=== PATIENT | female | born 1990 | race Caucasian/White ===

== ENCOUNTER 2017-01-25 22:09 | Emergency (ER) | payer SELFPAY ==
[~2017-01-25] VITALS: Ht 160 cm; Wt 104.5 kg
[~2017-01-25 22:09] MED LIST: TRAM50TA PO; ZOFR4TAB PO
[2017-01-25 22:10] VITALS: BP 160/87; PULSE 97; RESP 16; TEMP 98.9; O2SAT 100
--- NOTE | 2017-01-25 22:43 | PD ---
HPI Chief Complaint: Respiratory Symptoms Time Seen by Provider: 22:40 Travel History International Travel<30 days: No Contact w/Intl Traveler<30days: No Traveled to known affect area: No History of Present Illness HPI 26-year-old female presents to the emergency department for acute shortness of breath chest heaviness and feeling very anxious with tingling in her hands and feet after taking medication albuterol for an asthma attack. Patient states she has anxiety and is sometimes triggered by use of her inhaler when she has an asthma attack. Patient states this one was more profound and lasted longer and therefore decided to come to the emergency room for evaluation. Patient feels only slightly better at this time. Patient states that she feels very concerned because she tries to breathe she does not feel herself wheezing that she feels pressure in her chest. PFSH Past Medical History Narrative Medical ADHD anxiety asthma migraines cholecystectomy tonsillectomy tympanostomy; no tobacco use nursing notes reviewed ADHD: Yes Asthma: Yes Cancer: No Cardiovascular Problems: No Diabetes: No Diminished Hearing: No Medical other: Yes (Low Vitamin D) Psychiatric: Yes Immunizations Current: Yes Migraines: Yes Seizures: No Thyroid Disease: No Ulcer: No Tetanus Vaccination: > 5 Years Influenza Vaccination: No ?: Not LMP: currently on 01/25/17 : 0 Past Surgical History Appendectomy: No Cholecystectomy: Yes Oral Surgery: Yes (WISDOM TEETH) Tonsillectomy: Yes Tympanostomy Tube: Yes Other Surgery: No Social History Alcohol Use: No Tobacco Use: No Substance Use: No Allergies-Medications (Allergen,Severity, Reaction): Coded Allergies: Smoke (Verified Allergy, Mild, Sneezing, 01/03/16) ragweed pollen (Unverified Allergy, Mild, Sneezing, 09/19/16) bee venom protein (honey bee) (Unverified Allergy, Unknown, Swelling, 09/19) was stung as child and she was swollen Uncoded Allergies: mold (Allergy, Mild, Sneezing, 01/03/16) . pollen (Allergy, Mild, Sneezing, 01/03/16) . Reported Meds & Prescriptions Reported Meds & Active Scripts Active Vistaril (Hydroxyzine Pamoate) 25 Mg Cap 25 Mg PO Q6H PRN Zofran (Ondansetron HCl) 4 Mg Tab 4 Mg PO Q6HR PRN Tramadol (Tramadol HCl) 50 Mg Tab 50 Mg PO Q6H PRN Review of Systems Except as stated in HPI: all other systems reviewed are Neg General / Constitutional: No: Fever, Chills HENT: No: Congestion Cardiovascular: Positive: Chest Pain or Discomfort Respiratory: Positive: Shortness of Breath, Wheezing Gastrointestinal: Positive: Nausea, No: Abdominal Pain Genitourinary: No: Flank Pain Musculoskeletal: No: Myalgias, Arthralgias Skin: No Rash Neurologic: No: Weakness Psychiatric: Positive: Anxiety Hematologic/Lymphatic: No: Lymph Node Enlargement Physical Exam Narrative GENERAL: Well-developed well-nourished obese female in no respiratory distress appears mildly anxious GCS 15 SKIN: Warm and dry. HEAD: Atraumatic. Normocephalic. EYES: Pupils equal and round. No scleral icterus. No injection or drainage. ENT: No nasal bleeding or discharge. Mucous membranes pink and moist. NECK: Trachea midline. No JVD. CARDIOVASCULAR: Regular rate and rhythm. RESPIRATORY: No accessory muscle use. Clear to auscultation. Breath sounds equal bilaterally. GASTROINTESTINAL: Abdomen soft, non-tender, nondistended. Hepatic and splenic margins not palpable. MUSCULOSKELETAL: Extremities without clubbing, cyanosis, or edema. No obvious deformities. NEUROLOGICAL: Awake and alert. No obvious cranial nerve deficits. Motor grossly within normal limits. Five out of 5 muscle strength in the arms and legs. Normal speech. PSYCHIATRIC: Appropriate mood and affect; insight and judgment normal. Data Data Last Documented VS Vital Signs Date Time Temp Pulse Resp B/P (MAP) Pulse Ox O2 Delivery O2 Flow Rate FiO2 01/26/17 01:58 01/26/17 00:16 99 16 99 Room Air 01/25/17 22:10 98.9 Orders Orders Complete Blood Count With Diff (01/25/17 22:40) Comprehensive Metabolic Panel (01/25/17 22:40) Magnesium (Mg) (01/25/17 22:40) Troponin I (01/25/17 22:40) Iv Access Insert/Monitor (01/25/17 22:40) Electrocardiogram (01/25/17 22:40) Ecg Monitoring (01/25/17 22:40) Oximetry (01/25/17 22:40) Oxygen Administration (01/25/17 22:40) Chest, Single Ap (01/25/17 22:40) Ed Urine Pregnancytest Poc (01/25/17 22:40) D-Dimer (01/25/17 22:40) Lorazepam Inj (Ativan Inj) (01/25/17 22:45) Alcohol (Ethanol) (01/25/17 22:40) Ed Discharge Order (01/26/17 01:13) Labs Laboratory Tests Test 01/26/17 00:10 White Blood Count 11.6 TH/MM3 Red Blood Count 4.63 MIL/MM3 Hemoglobin 13.3 GM/DL Hematocrit 38.9 % Mean Corpuscular Volume 84.0 FL Mean Corpuscular Hemoglobin 28.8 PG Mean Corpuscular Hemoglobin Concent 34.3 % Red Cell Distribution Width 13.3 % Platelet Count 344 TH/MM3 Mean Platelet Volume 8.1 FL Neutrophils (%) (Auto) 70.6 % Lymphocytes (%) (Auto) 20.1 % Monocytes (%) (Auto) 8.1 % Eosinophils (%) (Auto) 0.8 % Basophils (%) (Auto) 0.4 % Neutrophils # (Auto) 8.2 TH/MM3 Lymphocytes # (Auto) 2.3 TH/MM3 Monocytes # (Auto) 0.9 TH/MM3 Eosinophils # (Auto) 0.1 TH/MM3 Basophils # (Auto) 0.0 TH/MM3 CBC Comment DIFF FINAL Differential Comment D-Dimer Quantitative (PE/DVT) 0.40 MG/L FEU Blood Urea Nitrogen 11 MG/DL Creatinine 0.74 MG/DL Random Glucose 99 MG/DL Total Protein 7.4 GM/DL Albumin 3.2 GM/DL Calcium Level 8.9 MG/DL Magnesium Level 2.1 MG/DL Alkaline Phosphatase 105 U/L Aspartate Amino Transf (AST/SGOT) 12 U/L Alanine Aminotransferase (ALT/SGPT) 20 U/L Total Bilirubin 0.2 MG/DL Sodium Level 141 MEQ/L Potassium Level 4.0 MEQ/L Chloride Level 107 MEQ/L Carbon Dioxide Level 25.4 MEQ/L Anion Gap 9 MEQ/L Estimat Glomerular Filtration Rate 94 ML/MIN Troponin I LESS THAN 0.02 NG/ML Ethyl Alcohol Level LESS THAN 3 MG/DL MDM Medical Decision Making Medical Screen Exam Complete: Yes Emergency Medical Condition: Yes Medical Record Reviewed: Yes Interpretation(s) EKG sinus rhythm rate [address] elevation or injury pattern or ectopy noted Last Impressions Chest X-Ray 01/25/17 2240 Signed Impressions: Service Date/Time: January 22:57 - CONCLUSION: No acute disease. Yeyo Trevizo MD CBC & BMP Diagram 01/26/17 00:10 Total Protein 7.4, Albumin 3.2 L, Calcium Level 8.9, Magnesium Level 2.1, Alkaline Phosphatase 105, Aspartate Amino Transf (AST/SGOT) 12 L, Alanine Aminotransferase (ALT/SGPT) 20, Total Bilirubin 0.2 Vital Signs Date Time Temp Pulse Resp B/P (MAP) Pulse Ox O2 Delivery O2 Flow Rate FiO2 01/26/17 00:16 99 16 129/74 (92) 99 Room Air 01/26/17 00:14 98 Room Air 01/26/17 00:14 99 Room Air 01/25/17 22:10 98.9 97 16 160/87 (111) 100 Room Air Differential Diagnosis Exacerbation asthma, PE, anxiety Narrative Course EKG sinus rhythm with no injury pattern Imaging study reveals no infiltrate or pneumothorax Patient placed on playground monitor with continuous pulse oximetry; administered Ativan 0.5 mg IV Lab values found to be in normal range and patient is stable for outpatient management Patient reports feeling clinically improved Diagnosis Primary Impression: Dyspnea Additional Impression: Panic attack Referrals: Primary Care Physician call for appointment Patient Instructions: General Instructions Med/Other Pt SpecificInfo: Prescription(s) given Scripts Hydroxyzine Pamoate (Vistaril) 25 Mg Cap 25 MG PO Q6H Y for ANXIETY, #6 CAP 0 Refills Prov: Teresita Evans MD 01/26/17 Disposition: 01 DISCHARGE HOME Condition: Stable Teresita Evans MD Jan 25, 2017 22:43
[2017-01-25] MEDS ORDERED: LORazepam 2 MG/ML VIAL IV PUSH ONE (22:45)
--- NOTE | 2017-01-25 23:11 | RADRPT ---
EXAM DATE/TIME: 01/25/2017 22:57 [facility] COMPARISON: CHEST SINGLE AP, March 17, 2014, 23:12. INDICATIONS : Shortness of breath today. MEDICAL HISTORY : Asthma. SURGICAL HISTORY : None. ENCOUNTER: Initial ACUITY: 1 day PAIN SCORE: 0/10 LOCATION: Bilateral chest FINDINGS: A single view of the chest demonstrates the lungs to be symmetrically aerated without evidence of mas s, infiltrate or effusion. The cardiomediastinal contours are unremarkable. Osseous structures are intact. CONCLUSION: No acute disease. Yeyo Trevizo MD on January 25, 2017 at 23:07 Board Certified Radiologist. This report was verified electronically.
[2017-01-26 00:14] VITALS: O2SAT 98
[2017-01-26 00:16] VITALS: BP 129/74; PULSE 99; RESP 16; O2SAT 99
[2017-01-26 00:29] LABS: AUTOMATED NEUTROPHIL # 8.2 TH/MM3 (1.8-7.7); BASOPHIL % 0.4 % (0.0-2.0); EOSINOPHIL # 0.1 TH/MM3 (0-0.4); EOSINOPHIL % 0.8 % (0.0-4.0); HEMATOCRIT 38.9 % (35.0-46.0); HEMOGLOBIN 13.3 GM/DL (11.6-15.3); LYMPH % 20.1 % (9.0-44.0); LYMPHOCYTE # 2.3 TH/MM3 (1.0-4.8); MEAN CORPUSCULAR HEMOGLOBIN 28.8 PG (27.0-34.0); MEAN CORPUSCULAR HGB CONC 34.3 % (32.0-36.0); MEAN PLATELET VOLUME 8.1 FL (7.0-11.0); MONO % 8.1 % (0.0-8.0); MONOCYTE # 0.9 TH/MM3 (0-0.9); NEUT % 70.6 % (16.0-70.0); PLATELET COUNT 344 TH/MM3 (150-450); RED BLOOD COUNT 4.63 MIL/MM3 (4.00-5.30); RED CELL DISTRIBUTION WIDTH 13.3 % (11.6-17.2); WHITE BLOOD COUNT 11.6 TH/MM3 (4.0-11.0)
[2017-01-26 00:42] LABS: ALBUMIN 3.2 GM/DL (3.4-5.0); ALT (GPT) 20 U/L (10-53); AST (GOT) 12 U/L (15-37); BICARBONATE 25.4 MEQ/L (21.0-32.0); BLOOD UREA NITROGEN 11 MG/DL (7-18); CALCIUM 8.9 MG/DL (8.5-10.1); CHLORIDE 107 MEQ/L (98-107); CREATININE 0.74 MG/DL (0.50-1.00); GLOMERULAR FILTRATION RATE 94 ML/MIN (>89); MAGNESIUM 2.1 MG/DL (1.5-2.5); SODIUM (NA) 141 MEQ/L (136-145)
[2017-01-26 00:47] LABS: ALKALINE PHOSPHATASE 105 U/L (45-117); GLUCOSE,RANDOM 99 MG/DL (74-106); TOTAL BILIRUBIN ADULT 0.2 MG/DL (0.2-1.0); TOTAL PROTEIN 7.4 GM/DL (6.4-8.2); TROPONIN I LESS THAN 0.02 NG/ML (0.02-0.05)
[2017-01-26] MEDS ORDERED: VIST25CA PO (01:16)
--- NOTE | 2017-01-26 22:50 | EKG ---
Date Performed: 01/26/2017 Time Performed: 00:39:57 PTAGE: 26 years EKG: Sinus rhythm NORMAL ECG NO PREVIOUS TRACING DOCTOR: Leodan Goldman Interpretating Date/Time 01/26/2017 22:48:52
== END 2017-01-26 01:56 | disposition home or self-care (01) ==
LOC: NEPC 22:09
DX: R06.00 Dyspnea, unspecified (principal); R20.2 Paresthesia of skin; F41.0 Panic disorder [episodic paroxysmal anxiety]; F90.9 Attention-deficit hyperactivity disorder, unspecified type; J45.909 Unspecified asthma, uncomplicated; Z79.899 Other long term (current) drug therapy
CPT/HCPCS: 71010; 80053; 80307; 83735; 84484; 84703; 85025; 85379; 93005; 96374; 99285; J2060

== ENCOUNTER 2017-05-13 13:38 | Emergency (ER) | payer OTHER ==
[~2017-05-13] VITALS: Ht 162.6 cm; Wt 128.0 kg
[~2017-05-13 13:38] MED LIST changes: +VIST25CA PO
[2017-05-13 13:53] VITALS: BP 123/72; PULSE 99; RESP 18; TEMP 99.2; O2SAT 98
[2017-05-13] MEDS ORDERED: MONT4CHW4 CHEW (14:31)
[2017-05-13] MEDS ORDERED: FLUO10TA PO (14:31)
--- NOTE | 2017-05-13 15:16 | PD ---
HPI Chief Complaint: Musculoskeletal Complaint Time Seen by Provider: 14:41 Travel History International Travel<30 days: No Contact w/Intl Traveler<30days: No Traveled to known affect area: No History of Present Illness HPI 26-year-old female presents to the emergency room for evaluation of left ankle pain after hearing a pop while walking earlier today. States since hearing the pop she has had extreme pain with ambulation. Pain is localized to the left lateral ankle with radiation across the front of the ankle. Denies paresthesias. She wrapped the area with an Lars wrap but has not taken anything for pain. Patient denies any trauma or injury today. She does report an injury to the left ankle about a week ago at work for which she has been on light duty. She is in the process of following up with an orthopedic doctor. No chronic medical conditions or daily medications. PFSH Past Medical History ADHD: Yes Asthma: Yes Cancer: No Cardiovascular Problems: No Diabetes: No Diminished Hearing: No Psychiatric: Yes Respiratory: Yes (ASTHMA) Immunizations Current: Yes Migraines: Yes Seizures: No Thyroid Disease: No Ulcer: No ?: Not LMP: 1 MONTH AGO : 0 Past Surgical History Appendectomy: No Cholecystectomy: Yes Oral Surgery: Yes (WISDOM TEETH) Tonsillectomy: Yes Tympanostomy Tube: Yes Other Surgery: No Social History Alcohol Use: No Tobacco Use: No Substance Use: No Allergies-Medications (Allergen,Severity, Reaction): Coded Allergies: Smoke (Verified Allergy, Mild, Sneezing, 05/13/17) ragweed pollen (Unverified Allergy, Mild, Sneezing, 05/13/17) bee venom protein (honey bee) (Unverified Allergy, Unknown, Swelling, ) was stung as child and she was swollen Uncoded Allergies: mold (Allergy, Mild, Sneezing, 01/03/16) . pollen (Allergy, Mild, Sneezing, 01/03/16) . Reported Meds & Prescriptions Reported Meds & Active Scripts Active Reported Fluoxetine (Fluoxetine HCl) 10 Mg Tab Unknown Dose PO DAILY Montelukast (Montelukast Sodium) 4 Mg Chew Unknown Dose CHEW HS Review of Systems Except as stated in HPI: all other systems reviewed are Neg Physical Exam Narrative GENERAL: Well-nourished, well-developed female in no acute distress. Afebrile. Ambulatory. SKIN: Focused skin assessment warm/dry. No erythema or ecchymosis. HEAD: Normocephalic. EYES: No scleral icterus. No injection or drainage. NECK: Supple, trachea midline. No JVD or lymphadenopathy. CARDIOVASCULAR: Regular rate and rhythm without murmurs, gallops, or rubs. RESPIRATORY: Breath sounds equal bilaterally. No accessory muscle use. MUSCULOSKELETAL: No cyanosis. No significant edema noted. 2+ dorsalis pedis pulse. Tenderness to palpation over the left lateral malleolus. Full range of motion. Data Data Last Documented VS Vital Signs Date Time Temp Pulse Resp B/P (MAP) Pulse Ox O2 Delivery O2 Flow Rate FiO2 05/13/17 13:53 99.2 99 18 123/72 (89) 98 Orders Orders Ankle, Complete ([id number]) (05/13/17 ) Ketorolac Inj (Toradol Inj) (05/13/17 17:00) Splint Or Brace Apply/Monitor (05/13/17 16:54) Crutches (05/13/17 16:54) MDM Medical Decision Making Medical Screen Exam Complete: Yes Emergency Medical Condition: Yes Medical Record Reviewed: Yes Differential Diagnosis Sprain, strain, contusion, dislocation, fracture Narrative Course 26-year-old female with history of ankle injury one week male presents to the emergency room for evaluation of left ankle pain. Patient states while ambulating today she heard a loud pop and had acute worsening of symptoms. Physical exam reveals tenderness to palpation of the left lateral malleolus. There is no significant erythema, edema, or ecchymosis. Full range of motion. Left lower extremity is neurovascularly intact with 2+ dorsalis pedis pulse. X- ray shows no acute bony abnormality. Likely ankle sprain. Patient discharged with ankle stirrup and crutches. Told to follow-up with an orthopedist as planned or return for worsening symptoms. She understands and agrees to plan. Diagnosis Primary Impression: Left ankle sprain Qualified Codes: S93.402A - Sprain of unspecified ligament of left ankle, initial encounter Referrals: Primary Care Physician Additional Instructions: Rest and drink plenty of fluids. Use crutches as needed. Take ibuprofen with food as directed, as needed for pain. Apply ice to the affected area for 20 minutes at a time, as needed for pain and swelling. Follow-up with a primary care physician for referral to orthopedist if symptoms persist. Return to the emergency room for worsening symptoms. Med/Other Pt SpecificInfo: Prescription(s) given Disposition: 01 DISCHARGE HOME Condition: Stable Radha Andrade May 13, 2017 15:16
--- NOTE | 2017-05-13 16:51 | RADRPT ---
EXAM DATE/TIME: 05/13/2017 16:36 [facility] COMPARISON: No previous studies available for comparison. INDICATIONS : Twist injury to left ankle, has pain MEDICAL HISTORY : None. SURGICAL HISTORY : None. ENCOUNTER: Initial ACUITY: 1 week PAIN SCORE: 10/10 LOCATION: Left ankle FINDINGS: Three view exam was performed of the left ankle. The bony structures are in normal alignment. No ev idence of fracture, dislocation. Mild soft tissue swelling. The ankle mortise is intact. No radiopaq ue foreign bodies are seen. Bony mineralization is normal. CONCLUSION: 1. No acute bony abnormality. Ziggy Howell MD on May 13, 2017 at 16:45 Board Certified Radiologist. This report was verified electronically.
[2017-05-13] MEDS ORDERED: KETOROLAC TROMETHAMINE 60 MG/2 ML (IM) VIAL IM ONE (17:00)
== END 2017-05-13 17:36 | disposition home or self-care (01) ==
LOC: PHEFT 13:38
DX: S93.402A Sprain of unspecified ligament of left ankle, initial encounter (principal); F90.9 Attention-deficit hyperactivity disorder, unspecified type; J45.909 Unspecified asthma, uncomplicated; Y93.01 Activity, walking, marching and hiking; Z79.899 Other long term (current) drug therapy
CPT/HCPCS: 73610; 96372; 99283; E0113; J1885; L1906

== ENCOUNTER 2017-06-05 20:16 | Emergency (ER) | payer OTHER ==
[~2017-06-05] VITALS: Ht 160 cm; Wt 109.0 kg
[~2017-06-05 20:16] MED LIST changes: +FLUO10TA PO; +MONT4CHW4 CHEW; -TRAM50TA PO; -VIST25CA PO; -ZOFR4TAB PO
[2017-06-05 20:59] VITALS: BP 139/107; PULSE 125; RESP 20; TEMP 99.4; O2SAT 96
[2017-06-05] MEDS ORDERED: TRI-TAB PO (21:02)
[2017-06-05] MEDS ORDERED: FLUO40CA PO (21:02)
[2017-06-05] MEDS ORDERED: MONT10TA4 PO (21:02)
[2017-06-05] MEDS ORDERED: ALBUAER3 INH (21:02)
[2017-06-05 21:40] VITALS: RESP 16; O2SAT 98
--- NOTE | 2017-06-05 21:42 | PD ---
HPI Chief Complaint: Abdominal Pain Time Seen by Provider: 21:42 Travel History International Travel<30 days: No Contact w/Intl Traveler<30days: No Traveled to known affect area: No History of Present Illness HPI 26-year-old female came to the emergency room brought by her mom with history of sudden onset left flank pain that started around 5 PM. Mother said that she heard her scream and found her on the floor doubled over in pain. Patient currently is complaining of sharp stabbing pain from left flank radiating to her left lower quadrant area. Her mother says that she noticed that there was blood in her urine initially but attributed it to her menstrual cycle. Patient has been nauseous but did not vomit. She has never had this kind of pain in the past. No history of kidney stones. Patient had her gallbladder taken out last year. Vital signs otherwise stable. She rates her pain 8 out of 10. Vital signs are suggestive of tachycardia. PFSH Past Medical History Narrative Medical List of her past medical, surgical, social and family history reviewed from the nursing note. ADHD: Yes Asthma: Yes Cancer: No Cardiovascular Problems: No Diabetes: No Diminished Hearing: No Psychiatric: Yes Respiratory: Yes (ASTHMA) Immunizations Current: Yes Migraines: Yes Seizures: No Thyroid Disease: No Ulcer: No Tetanus Vaccination: Unknown Influenza Vaccination: No ?: Not LMP: "LAST MONTH I THINK". : 0 Past Surgical History Appendectomy: No Cholecystectomy: Yes Oral Surgery: Yes (WISDOM TEETH) Tonsillectomy: Yes Tympanostomy Tube: Yes Other Surgery: No Social History Alcohol Use: Yes (rare) Tobacco Use: No Substance Use: No Allergies-Medications (Allergen,Severity, Reaction): Coded Allergies: Smoke (Verified Allergy, Mild, Sneezing, 06/05/17) ragweed pollen (Unverified Allergy, Mild, Sneezing, 06/05/17) bee venom protein (honey bee) (Unverified Allergy, Unknown, Swelling, ) was stung as child and she was swollen Uncoded Allergies: mold (Allergy, Mild, Sneezing, 01/03/16) . pollen (Allergy, Mild, Sneezing, 01/03/16) . Comments List of her allergies reviewed from the nursing note Reported Meds & Prescriptions Reported Meds & Active Scripts Active Zofran Odt (Ondansetron Odt) 4 Mg Tab 4 Mg SL Q6HR PRN Hydrocodone-Acetaminophen 5-325 mg Tab 1 Tab PO Q6H PRN Macrobid (Nitrofurantoin Monoh/Nitrofur Macro) 100 Mg Cap 100 Mg PO BID 10 Days Reported Proair Hfa 8.5 GM Inh (Albuterol Sulfate) 90 Mcg/Act Aer 2 Puff INH Q4-6H PRN 108 mcg/actuation Tri-Sprintec (Norgestimate-Ethinyl Estradiol) 0.18/0.215/0.25 Mg-35 Mcg Tab 1 Tab PO DAILY Montelukast (Montelukast Sodium) 10 Mg Tab 10 Mg PO HS Fluoxetine (Fluoxetine HCl) 40 Mg Cap 40 Cap PO DAILY Narrative Medication List of her home medications reviewed from the nursing note. Review of Systems Except as stated in HPI: all other systems reviewed are Neg Gastrointestinal: Positive: Nausea Genitourinary: Positive: Flank Pain Physical Exam Narrative GENERAL: Awake, alert, moderate distress SKIN: Focused skin assessment warm/dry. HEAD: Atraumatic. Normocephalic. EYES: Pupils equal and round. No scleral icterus. No injection or drainage. ENT: No nasal bleeding or discharge. Mucous membranes pink and moist. NECK: Trachea midline. No JVD. CARDIOVASCULAR: Regular rate and rhythm. No murmur appreciated. Tachycardia RESPIRATORY: No accessory muscle use. Clear to auscultation. Breath sounds equal bilaterally. GASTROINTESTINAL: Abdomen soft, non-tender, nondistended. Hepatic and splenic margins not palpable. MUSCULOSKELETAL: No obvious deformities. No clubbing. No cyanosis. No edema. NEUROLOGICAL: Awake and alert. No obvious cranial nerve deficits. Motor grossly within normal limits. Normal speech. PSYCHIATRIC: Appropriate mood and affect; insight and judgment normal. Data Data Last Documented VS Vital Signs Date Time Temp Pulse Resp B/P (MAP) Pulse Ox O2 Delivery O2 Flow Rate FiO2 06/06/17 00:58 06/06/17 00:40 100 16 97 Room Air 06/05/17 20:59 99.4 Orders Orders Complete Blood Count With Diff (06/05/17 21:52) Comprehensive Metabolic Panel (06/05/17 21:52) Lipase (06/05/17 21:52) Urinalysis - C+S If Indicated (06/05/17 21:52) Ct Abd/Pel W/O Iv Contrast (06/05/17 21:52) Iv Access Insert/Monitor (06/05/17 21:52) Ecg Monitoring (06/05/17 21:52) Oximetry (06/05/17 21:52) Morphine Inj (Morphine Inj) (06/05/17 22:00) Ondansetron Inj (Zofran Inj) (06/05/17 22:00) Sodium Chlor 0.9% 1000 Ml Inj (Ns 1000 M (06/05/17 21:52) Sodium Chloride 0.9% Flush (Ns Flush) (06/05/17 22:00) Ed Urine Pregnancytest Poc (06/05/17 21:52) Urine Culture (06/05/17 21:40) Ceftriaxone Inj (Rocephin Inj) (06/05/17 23:15) Blood Culture (06/05/17 23:02) Ed Discharge Order (06/05/17 23:06) Morphine Inj (Morphine Inj) (06/05/17 23:30) Labs Laboratory Tests Test 06/05/17 21:40 White Blood Count 13.1 TH/MM3 Red Blood Count 4.57 MIL/MM3 Hemoglobin 12.5 GM/DL Hematocrit 37.7 % Mean Corpuscular Volume 82.4 FL Mean Corpuscular Hemoglobin 27.2 PG Mean Corpuscular Hemoglobin Concent 33.0 % Red Cell Distribution Width 13.8 % Platelet Count 346 TH/MM3 Mean Platelet Volume 8.3 FL Neutrophils (%) (Auto) 77.1 % Lymphocytes (%) (Auto) 16.1 % Monocytes (%) (Auto) 5.6 % Eosinophils (%) (Auto) 0.9 % Basophils (%) (Auto) 0.3 % Neutrophils # (Auto) 10.2 TH/MM3 Lymphocytes # (Auto) 2.1 TH/MM3 Monocytes # (Auto) 0.7 TH/MM3 Eosinophils # (Auto) 0.1 TH/MM3 Basophils # (Auto) 0.0 TH/MM3 CBC Comment DIFF FINAL Differential Comment Urine Color YELLOW Urine Turbidity SL CLOUDY Urine pH 6.0 Urine Specific [place] GREATER/EQUAL 1.030 Urine Protein TRACE mg/dL Urine Glucose (UA) NEG mg/dL Urine Ketones NEG mg/dL Urine Occult Blood LARGE Urine Nitrite NEG Urine Bilirubin NEG Urine Urobilinogen 0.2 MG/DL Urine Leukocyte Esterase TRACE Urine RBC 15-19 /hpf Urine WBC 9-14 /hpf Urine WBC Clumps FEW Urine Squamous Epithelial Cells > 8 /hpf Urine Bacteria FEW /hpf Microscopic Urinalysis Comment CULTURE INDICATED Blood Urea Nitrogen 11 MG/DL Creatinine 0.71 MG/DL Random Glucose 93 MG/DL Total Protein 7.7 GM/DL Albumin 3.0 GM/DL Calcium Level 8.6 MG/DL Alkaline Phosphatase 96 U/L Aspartate Amino Transf (AST/SGOT) 11 U/L Alanine Aminotransferase (ALT/SGPT) 16 U/L Total Bilirubin 0.3 MG/DL Sodium Level 139 MEQ/L Potassium Level 3.6 MEQ/L Chloride Level 105 MEQ/L Carbon Dioxide Level 27.7 MEQ/L Anion Gap 6 MEQ/L Estimat Glomerular Filtration Rate 99 ML/MIN Lipase 108 U/L MDM Medical Decision Making Medical Screen Exam Complete: Yes Emergency Medical Condition: Yes Medical Record Reviewed: Yes Differential Diagnosis Ureteral colic, UTI, pyelonephritis, muscular skeletal pain Narrative Course 10:42 PM patient has been medicated for pain. Awaiting for blood test results and CAT scan to be done and resulted. 11:03 PM blood test results are back and within acceptable limit. UA suggestive of hematuria as well as pyuria. CT scan shows 2-3 mm distal left ureteral stone without any hydronephrosis. I ordered IV Rocephin and patient will be discharged home on pain medication and something for nausea. Procedures EKG Prior to Arrival: No Diagnosis Primary Impression: Ureteral colic Additional Impression: UTI (urinary tract infection) Qualified Codes: N39.0 - Urinary tract infection, site not specified; R31.9 - Hematuria, unspecified Referrals: Damon Hodge DO 3 days Additional Instructions: Take the medication as per prescription direction. Return to the ER if condition worsens or any other new concerns. The pain medication will make you groggy. Do not drive while you are on the medication. Follow-up with the urologist was name and number been given to you. Call the office tomorrow to make an appointment. Urinate through the strainer and once he passed the stone take it with you to the urologist. Med/Other Pt SpecificInfo: Prescription(s) given Scripts Ondansetron Odt (Zofran Odt) 4 Mg Tab 4 MG SL Q6HR Y for Nausea/Vomiting, #15 TAB 0 Refills Prov: Akanksha Stringer MD 06/05/17 Hydrocodone-Acetaminophen (Hydrocodone-Acetaminophen) 5-325 mg Tab 1 TAB PO Q6H Y for PAIN, #15 TAB 0 Refills Prov: Akanksha Stringer MD 06/05/17 Nitrofurantoin Monohydrate Macrocrystals (Macrobid) 100 Mg Cap 100 MG PO BID for Infection for 10 Days, #20 CAP 0 Refills Prov: Akanksha Stringer MD 06/05/17 Disposition: 01 DISCHARGE HOME Condition: Stable Akanksha Stringer MD June 05, 2017 21:42
[2017-06-05 21:45] VITALS: BP 143/66; PULSE 110; RESP 16; O2SAT 98
[2017-06-05] MEDS ORDERED: SODIUM CHLOR 0.9% 1000 ML INJ 1,000 ML IV SCH (21:52)
[2017-06-05] MEDS ORDERED: MORPHINE SULFATE 4 MG/ML INJ IV PUSH ONE ×2 (22:00→23:30)
[2017-06-05] MEDS ORDERED: ONDANSETRON HCL 4 MG/2 ML VIAL IVP ONE (22:00)
[2017-06-05] MEDS ORDERED: SODIUM CHLORIDE 0.9% FLUSH 10 ML FLUSH IV FLUSH PRN (22:00)
[2017-06-05 22:38] LABS: BILIRUBIN, URINE NEG (NEG); BLOOD, URINE LARGE (NEG); GLUCOSE,URINE NEG (NEG); KETONE, URINE NEG (NEG); NITRITE,URINE NEG (NEG); URINE COLOR YELLOW (YELLW/STRAW); URINE LEUKOCYTE ESTERASE TRACE (NEG)
[2017-06-05 22:39] LABS: AUTOMATED NEUTROPHIL # 10.2 TH/MM3 (1.8-7.7); BASOPHIL % 0.3 % (0.0-2.0); EOSINOPHIL # 0.1 TH/MM3 (0-0.4); EOSINOPHIL % 0.9 % (0.0-4.0); HEMATOCRIT 37.7 % (35.0-46.0); HEMOGLOBIN 12.5 GM/DL (11.6-15.3); LYMPH % 16.1 % (9.0-44.0); LYMPHOCYTE # 2.1 TH/MM3 (1.0-4.8); MEAN CELL VOLUME 82.4 FL (80.0-100.0); MEAN CORPUSCULAR HEMOGLOBIN 27.2 PG (27.0-34.0); MEAN PLATELET VOLUME 8.3 FL (7.0-11.0); MONO % 5.6 % (0.0-8.0); MONOCYTE # 0.7 TH/MM3 (0-0.9); NEUT % 77.1 % (16.0-70.0); PLATELET COUNT 346 TH/MM3 (150-450); RED BLOOD COUNT 4.57 MIL/MM3 (4.00-5.30); RED CELL DISTRIBUTION WIDTH 13.8 % (11.6-17.2); WHITE BLOOD COUNT 13.1 TH/MM3 (4.0-11.0)
[2017-06-05 22:42] LABS: BACTERIA, URINE FEW /hpf; RBC, URINE 15-19 /hpf (0-3); SQUAMOUS EPITHELIAL CELL URINE > 8 /hpf (0-5); WHITE BLOOD CELL CLUMPS FEW
[2017-06-05 22:47] LABS: CHLORIDE 105 MEQ/L (98-107); SODIUM (NA) 139 MEQ/L (136-145)
[2017-06-05 22:51] LABS: BICARBONATE 27.7 MEQ/L (21.0-32.0); BLOOD UREA NITROGEN 11 MG/DL (7-18); CALCIUM 8.6 MG/DL (8.5-10.1); GLUCOSE,RANDOM 93 MG/DL (74-106)
[2017-06-05 22:54] LABS: ALT (GPT) 16 U/L (10-53); AST (GOT) 11 U/L (15-37); CREATININE 0.71 MG/DL (0.50-1.00); GLOMERULAR FILTRATION RATE 99 ML/MIN (>89)
--- NOTE | 2017-06-05 22:54 | RADRPT ---
EXAM DATE/TIME: 06/05/2017 22:25 This report includes an Addendum and supersedes previous reports for this exam. [facility] COMPARISON: No previous studies available for comparison. INDICATIONS : Left abdominal pain. ORAL CONTRAST: No oral contrast ingested. RADIATION DOSE: 22.35 CTDIvol (mGy) MEDICAL HISTORY : None SURGICAL HISTORY : Cholecystectomy. ENCOUNTER: Initial ACUITY: 1 day PAIN SCALE: 8/10 LOCATION: Left flank TECHNIQUE: Volumetric scanning of the abdomen and pelvis was performed. Using automated exposure control and ad justment of the mA and/or kV according to patient size, radiation dose was kept as low as reasonably achievable to obtain optimal diagnostic quality images. DICOM format image data is available electro nically for review and comparison. FINDINGS: Lung bases are clear no acute findings in the liver, spleen, adrenals, kidneys or pancreas. Previous cholecystectomy. No free fluid. No bowel obstruction. No adenopathy. 2.6 cm right ovarian cyst. Small fat containing u mbilical hernia. CONCLUSION: 1. No acute findings in abdomen and pelvic CT. 2.6 cm right ovarian cyst. Previous cholecystectomy. Ziggy Howell MD on June 05, 2017 at 22:49 Board Certified Radiologist. This report was verified electronically. ADDENDUM: I was asked to review the above. There may be a small, 2-3 mm stone in the distal left ureter just ab ove the UVJ (image 80 on series 2). No hydroureter or hydronephrosis, however Júnior Langston MD on June 05, 2017 at 23:03 Board Certified Radiologist. This report was verified electronically.
[2017-06-05 22:56] LABS: TOTAL BILIRUBIN ADULT 0.3 MG/DL (0.2-1.0); TOTAL PROTEIN 7.7 GM/DL (6.4-8.2)
[2017-06-05 22:57] LABS: ALKALINE PHOSPHATASE 96 U/L (45-117)
[2017-06-05] MEDS ORDERED: HYDR-3516 PO (23:06)
[2017-06-05] MEDS ORDERED: ZOFR4TAB3 SL (23:06)
[2017-06-05] MEDS ORDERED: MACR100C2 PO (23:06)
[2017-06-05] MEDS ORDERED: cefTRIAXone INJ 1,000 MG in SODIUM CHLORIDE 0.9% INJ 100 ML IV ONE (23:15)
[2017-06-05 23:40] VITALS: BP 110/79; PULSE 102; RESP 16; O2SAT 96
[2017-06-06 00:40] VITALS: BP 140/67; PULSE 100; RESP 16; O2SAT 97
== END 2017-06-06 01:01 | disposition home or self-care (01) ==
LOC: PHED 20:16
DX: N39.0 Urinary tract infection, site not specified (principal); N20.1 Calculus of ureter; F90.9 Attention-deficit hyperactivity disorder, unspecified type; J45.909 Unspecified asthma, uncomplicated; Z79.899 Other long term (current) drug therapy
CPT/HCPCS: 74176; 80053; 81001; 83690; 84703; 85025; 87040; 87086; 96361; 96365; 96375; 96376; 99284; J0696; J2270; J2405; J7030